=== PATIENT | male | born 1995 | race Two or more races ===

== ENCOUNTER 2022-11-09 11:09 | Emergency (ER) | payer SELFPAY ==
[~2022-11-09] VITALS: Ht 177.8 cm; Wt 77.0 kg
[2022-11-09] MEDS ORDERED: diphenhdrAMINE HCL 50 MG/1 ML VL IM ONE (11:15)
[2022-11-09] MEDS ORDERED: LORazepam 2MG/ML-1ML VIAL IM ONE (11:15)
[2022-11-09 11:54] LABS: Basophils # (auto) 0 10 ^3/uL (0-0.2); Basophils % (auto) 0.4 % (0.0-2.0); Eosinophils # (auto) 0 10 ^3/uL (0-0.8); Eosinophils % (auto) 0.3 % (0.0-7.0); Hematocrit 50.8 % (41.0-53.0); Hemoglobin 16.7 g/dL (13.5-17.5); Lymphocytes # (auto) 1.3 10 ^3/uL (0.4-5.4); Lymphocytes % (auto) 11.7 % (10.0-50.0); Mean Corpuscular Hemoglobin 30.5 pg (28.0-32.0); Mean Corpuscular Hgb Conc. 32.8 g/dL (32.0-36.0); Mean Corpuscular Volume 92.9 fL (80.0-100.0); Monocytes # (auto) 0.7 10 ^3/uL (0-1.3); Monocytes % (auto) 6.7 % (0.0-12.0); Neutrophils # (auto) 8.8 10 ^3/uL (1.6-8.6); Neutrophils % (auto) 80.9 % (37.0-80.0); Nucleated Red Blood Cells % 0.1 %; Red Blood Cells 5.47 10^6/uL (4.5-5.90); Red Cell Distribution Width 13.1 % (11.8-14.3); White Blood Cell 10.8 10^3/uL (4.4-10.8)
[2022-11-09 12:01] LABS: Albumin 4.8 g/dL (3.4-5.0); Anion Gap 11 (5-15); Blood Urea Nitrogen 12 mg/dL (7-18); Calcium 9.4 mg/dL (8.5-10.1); Carbon Dioxide 16 mmol/L (21-32); Chloride 110 mmol/L (98-107); Glucose 88 mg/dL (74-106); Magnesium 2.8 mg/dL (1.6-2.6); Sodium 137 mmol/L (136-145)
[2022-11-09 12:05] LABS: Alanine Aminotransferase 49 U/L (16-61); Alkaline Phosphatase 63 U/L (45-117); Aspartate Aminotransferase 61 U/L (15-37); BUN/Creatinine Ratio 10.9 (10.0-20.0); Bilirubin, Total 2.6 mg/dL (0.2-1.0); Blood Alcohol < 3.0 mg/dL (0-5); GFR African American 100 mL/min; GFR Non-African American 83 mL/min; Total Protein 7.8 g/dL (6.4-8.2)
[2022-11-09 12:07] LABS: Salicylate < 1.7 mg/dL (2.8-20.0)
[2022-11-09 12:08] LABS: Potassium 3.9 mmol/L (3.5-5.1)
[2022-11-09 12:10] LABS: Acetaminophen < 2.0 ug/mL (10-30)
[2022-11-09 12:36] VITALS: BP 115/64
[2022-11-09 13:53] LABS: Hepatitis B Surface Antibody Negative (Negative)
== END 2022-11-09 13:11 ==
LOC: ER 11:09 → EDBD 11:09 → ER 12:50
DX: F19.20 Other psychoactive substance dependence, uncomplicated (principal); F15.10 Other stimulant abuse, uncomplicated
CPT/HCPCS: 36415; 80053; 80320; 80329; 83735; 85025; 86703; 86706; 86803; 87340; 96372; 99285; J1200; J2060